=== PATIENT | female | born 1955 ===

== ENCOUNTER → 2021-07-19 11:03 | Outpatient (BNVA) | payer MEDICARE, MEDICAID, SELFPAY | PROVIDERS: PCP Internal Medicine; Visit Provider Nurse Practitioner Family | CPT/HCPCS: Q3014 ==

== ENCOUNTER → 2021-08-11 09:18 | Outpatient (BNVA) | payer MEDICARE, SELFPAY | PROVIDERS: PCP Internal Medicine; Visit Provider Nurse Practitioner Family | DX: Z13.89 Encounter for screening for other disorder (principal) ==

== ENCOUNTER → 2021-12-04 10:27 | Outpatient (BNVA) | payer OTHER, SELFPAY | PROVIDERS: PCP Internal Medicine; Visit Provider Nurse Practitioner Family | DX: G20 Parkinson's disease (principal); R56.9 Unspecified convulsions; R44.3 Hallucinations, unspecified; F03.90 Unspecified dementia, unspecified severity, without behavioral disturbance, psychotic disturbance, mood disturbance, and anxiety; Z79.899 Other long term (current) drug therapy | CPT/HCPCS: Q3014 ==

== ENCOUNTER → 2022-10-05 11:04 | Outpatient (BNVA) | payer OTHER, SELFPAY | PROVIDERS: PCP Internal Medicine; Visit Provider Nurse Practitioner Family | DX: G20 Parkinson's disease (principal); R56.9 Unspecified convulsions; R44.3 Hallucinations, unspecified; F03.90 Unspecified dementia, unspecified severity, without behavioral disturbance, psychotic disturbance, mood disturbance, and anxiety | CPT/HCPCS: Q3014 ==

== ENCOUNTER 2023-03-19 15:33 | Outpatient (AMB) | payer OTHER, SELFPAY ==
--- NOTE | 2023-03-19 15:34 | MHC.OFFVIS ---
Intake Intake Visit Reasons: Video call [facility] f/u appt # [phone] Intake Note: Patient video call for follow up. patient states not issues or concerns at the moment Allergies Cephalosporins Allergy (Unknown, Verified 03/19/23 15:34) Unknown Penicillins Allergy (Unknown, Verified 03/19/23 15:34) Unknown Medication List - Last Reconciled 03/19/23 by ANTHONY Rivera acetaminophen ER (Mapap Arthritis Pain) 650 mg PO Q6H PRN amlodipine 10 mg PO DAILY apixaban (Eliquis) 5 mg PO BID atorvastatin 40 mg PO DAILY divalproex 250 mg PO TID 30 days gabapentin 2 caps qam, 1 cap q 2pm, 1 cap qhs PO; 30 days levetiracetam (Keppra) 1,000 mg PO BID 30 days levetiracetam (Keppra) 250 mg PO BID 30 days lisinopril 20 mg PO DAILY lorazepam 0.25 mg (1/2 x 0.5 mg) PO TID 30 days quetiapine 25 - 50 mg (1 - 2 x 25 mg) PO BEDTIME 30 days HPI HPI Comments History of Present Illness Details 67-yr-old female presents for f/u televideo visit, via [email or web address]. Pt's dtr provides history. In Jan, pt developed Covid-19 w/ cough, fever, and breakthrough seizures. She went to the hosp from Jan 26-. Her Keppra dose was increased for several days, but has returned to Keppra 1250mg bid. They never started the Rytary as they were worried about worsening her hallucinations. Pt is eating and drinking ok. But, she is sometimes pocketing her food while eating or coughs while drinking. She takes her meds w/o diff. She has a swallowing eval coming up. She has a general surgery appt for a right lower abd mass- ? lipoma. No skin issues. She has an OTC alt air mattress (dtr bought on [employer]). Pt is no longer walking, dtr is considering purchasing a sitting transfer lift. [facility] Medical History A-fib Arthritis Cerebral infarction FH: cholecystectomy Family History Father HTN (hypertension) Mother HTN (hypertension) Cancer Social History Alcohol intake: never Patient Tobacco Use Status: Never used Tobacco Review of Systems Const All systems reviewed & are unremarkable except as noted in HPI and below Neuro Reports confusion Psych Reports confusion Physical Exam Const Other: Laying in bed, General: cooperative, no acute distress and confusion Nutritional Appearance: well nourished Orientation/consciousness: confusion Neuro General: confusion Assessment & Plan Assessment & Plan (1) Parkinson's disease: Code(s): G20 - Parkinson's disease (2) Seizures: Code(s): R56.9 - Unspecified convulsions (3) Hallucinations: Comment: Nuplazid helped, but stopped d/t A-fib. Code(s): R44.3 - Hallucinations, unspecified (4) Dementia: Code(s): F03.90 - Unspecified dementia, unspecified severity, without behavioral disturbance, psychotic disturbance, mood disturbance, and anxiety Plan For seizures: Continue Depakote 250mg tid. Continue Levetiracetam 1250mg bid. Continue Gabapentin. ? For dementia/Parkinson's: Swallow study as ordered. Hold Rytary 23.75-95mg. Continue Seroquel 25 mg 1.5-2 tabs qhs. Continue Lorazepam. Continue supportive care. ? f/u in 6 months or sooner prn. Medications: Refilled levetiracetam (Keppra) 1,000 mg PO BID 30 days 60 tabs 6RF levetiracetam (Keppra) 250 mg PO BID 30 days 60 tabs 6RF Telehealth Telehealth Location of provider rendering services: practice address Location of patient: address on file Patient Identification confirmed using: Name, : Yes Telehealth method: video Patient verbally consented to treatment: Yes Patient verbally consented to billing insurance company: Yes Patient informed of any privacy concerns related to visit: Yes Minutes spent on Phone/Video with Pt.: 21 Coding Level of Care Code Tele Est Pt Level 4 (69117) Diagnoses Parkinson's disease G20 Seizures R56.9 Hallucinations R44.3 Dementia F03.90
== END 2023-03-20 08:23 | disposition home or self-care (01) ==
LOC: HO.HSMS 15:33
PROVIDERS: PCP Internal Medicine; Visit Provider Nurse Practitioner Family
DX: G20.A1 Parkinson's disease without dyskinesia, without mention of fluctuations (principal); F02.82 Dementia in other diseases classified elsewhere, unspecified severity, with psychotic disturbance; R56.9 Unspecified convulsions
CPT/HCPCS: 99214

== ENCOUNTER → 2023-03-19 15:33 | Outpatient (BNVA) | payer OTHER, SELFPAY | PROVIDERS: PCP Internal Medicine; Visit Provider Nurse Practitioner Family ==

== ENCOUNTER 2023-09-16 11:48 | Outpatient (AMB) | payer OTHER, SELFPAY ==
--- NOTE | 2023-09-16 11:35 | A.OFFVIS_ITS ---
Intake Intake Visit Reasons: 6 mo f/u - Video call [phone] Allergies Cephalosporins Allergy (Unknown, Verified 09/16/23 11:48) Unknown Penicillins Allergy (Unknown, Verified 09/16/23 11:48) Unknown Medication List - Last Reconciled 09/16/23 by ANTHONY Rivera acetaminophen ER (Mapap Arthritis Pain) 650 mg PO Q6H PRN amlodipine 10 mg PO DAILY apixaban (Eliquis) 5 mg PO BID atorvastatin 40 mg PO DAILY divalproex 250 mg PO TID 30 days gabapentin 2 caps qam, 1 cap q 2pm, 1 cap qhs PO; 30 days levetiracetam (Keppra) 1,000 mg PO BID 30 days levetiracetam (Keppra) 250 mg PO BID 30 days lisinopril 20 mg PO DAILY lorazepam 0.25 mg (1/2 x 0.5 mg) PO TID 30 days quetiapine 25 - 50 mg (1 - 2 x 25 mg) PO BEDTIME 30 days HPI HPI Comments History of Present Illness Details 68-yr-old female presents for f/u teleph one visit. Pt's dtr provides history. Dtr denies any seizure activity. Compliant w/ her AEDs. She is dependent for all ADLs. She is rigid. Her dtr is giving her bed baths, as showering her was becoming unsafe. Her home OT- suggested to do the bed baths instead. Pt is eating and drinking ok. Swallowing eval was normal. No constipation or known abdominal pain. Voiding QS. She has a general surgery appt- was rescheduled to 09/25/23- d/t for chronic light lower abd mass- ? lipoma. No skin issues. She has an OTC alt air mattress (dtr had bought on [employer]). Pt is no longer standing or walking, dtr and her fiance do a 2 person transfer. Dtr feels pt's mood is overall content. No usual crying or agitation. Rarely calling out- feels this just happens when her CPAP does not have a good seal. [facility] Medical History (Updated 09/16/23 @ 16:56 by ANTHONY Rivera) Parkinson's disease Arthritis A-fib Cerebral infarction FH: cholecystectomy Family History Father HTN (hypertension) Mother HTN (hypertension) Cancer Social History Alcohol intake: never Patient Tobacco Use Status: Never used Tobacco Assessment & Plan Assessment & Plan (1) Dementia: Code(s): F03.90 - Unspecified dementia, unspecified severity, without behavioral disturbance, psychotic disturbance, mood disturbance, and anxiety (2) Hallucinations: Comment: Nuplazid helped, but stopped d/t A-fib. Code(s): R44.3 - Hallucinations, unspecified (3) Seizures: Code(s): R56.9 - Unspecified convulsions (4) Parkinson's disease without dyskinesia: Code(s): G20.A1 - Parkinson's disease without dyskinesia, without mention of fluctuations Plan For seizures: Continue Depakote 250mg tid. Continue Levetiracetam 1250mg bid. Continue Gabapentin. ? For dementia/Parkinson's: Hold Rytary 23.75-95mg for now. Continue Seroquel 25 mg 1.5-2 tabs qhs. Continue Lorazepam. Continue supportive care. ? f/u in 9 months or sooner prn. Medications: Refilled levetiracetam (Keppra) 1,000 mg PO BID 60 tabs 6RF 30 days levetiracetam (Keppra) 250 mg PO BID 60 tabs 6RF 30 days gabapentin 2 caps qam, 1 cap q 2pm, 1 cap qhs PO; 120 caps 6RF 30 days quetiapine 25 - 50 mg (1 - 2 x 25 mg) PO BEDTIME 60 tabs 6RF 30 days Telehealth Telehealth Location of provider rendering services: practice address Location of patient: address on file Patient Identification confirmed using: Name, : Yes Telehealth method: voice only Patient verbally consented to treatment: Yes Patient verbally consented to billing insurance company: Yes Patient informed of any privacy concerns related to visit: Yes Minutes spent on Phone/Video with Pt.: 12 Coding Level of Care Code Tele Est Pt Level 4 (73522) Diagnoses Dementia F03.90 Hallucinations R44.3 Seizures R56.9 Parkinson's disease without dyskinesia G20.A1
== END 2023-09-23 13:19 | disposition home or self-care (01) ==
LOC: HO.HSMS 11:48
PROVIDERS: PCP Internal Medicine; Visit Provider Nurse Practitioner Family
DX: G20.A1 Parkinson's disease without dyskinesia, without mention of fluctuations (principal); F02.80 Dementia in other diseases classified elsewhere, unspecified severity, without behavioral disturbance, psychotic disturbance, mood disturbance, and anxiety; R44.3 Hallucinations, unspecified; R56.9 Unspecified convulsions
CPT/HCPCS: 99442

== ENCOUNTER → 2023-09-16 11:48 | Outpatient (BNVA) | payer OTHER, SELFPAY | PROVIDERS: PCP Internal Medicine; Visit Provider Nurse Practitioner Family ==

== ENCOUNTER 2024-06-18 11:28 | Outpatient (AMB) | payer OTHER, SELFPAY ==
--- NOTE | 2024-06-18 11:29 | MHC.OFFVIS ---
Vital Signs 06/18/24 11:30 Height 4 ft 9 in Intake Visit Reasons: 9 mo f/u [phone] Outside Machinist Helper Required: No Accompanied by: Daughter Allergies Cephalosporins Allergy (Unknown, Verified 06/18/24 11:29) Unknown Penicillins Allergy (Unknown, Verified 06/18/24 11:29) Unknown HPI Comments Details: 69-yr-old female presents for f/u telephone visit. Pt is present and pt's dtr provides history. They are unable to utilize [employer] technology today. Pt was tx'd for a URI about 1-2 wks ago, but is feeling better now. She did have general surgery consult- for chronic light lower abd lipoma, but excision was not advised as it is not bother Dtr denies any seizure activity. Compliant w/ her AEDs. Dtr is pt's primary caregiver- her older dtr does help her when needed. She is dependent for all ADLs. She is still rigid. Transfers via pippa lift- dtr tries to get her OOB a few times a week. Her dtr is giving her bed baths, as showering her was becoming unsafe. Pt is eating and drinking ok. Previous swallowing eval was normal. No constipation or known abdominal pain. Voiding QS. Pt had started to develop a buttock sore, however dtr realized that her air mattress was slightly deflated as her sheet was crimping the air mattress tubing. Dtr was able to increase her skin care and positioning, and the sore resolved. She has an OTC alt air mattress (dtr had bought on [employer]). Pt is no longer standing or walking, dtr and her fiance do a 2 person transfer. Dtr feels pt's mood is overall content. No usual crying or agitation. Rarely calls out her mother/aunt/son's name or where they are. Or may call out to her dtr or making a sound to get her dtr's attention- often if pt needs to be changed. Occasionally may have moments when her speech is clearer- she may ask how long she has been like this. She is using the CPAP nightly. Sometimes the nasal pillows have some condensation on it. Patient's daughter wonders when her CPAP machine should be replaced, as she has had for many years. She is f/b [employer]. [facility] Medical History Parkinson's disease Arthritis A-fib Cerebral infarction FH: cholecystectomy Family History Father HTN (hypertension) Mother HTN (hypertension) Cancer Social History Alcohol intake: never Patient Tobacco Use Status: Never used Tobacco Telehealth Telehealth Telehealth Platform: [employer] Location of provider rendering services: practice address Location of patient: address on file Patient Identification confirmed using: Name, : Yes Telehealth method: voice only Patient verbally consented to treatment: Yes Patient verbally consented to billing insurance company: Yes Patient informed of any privacy concerns related to visit: Yes Minutes spent on Phone/Video with Pt.: 24 Assessment & Plan Assessment & Plan (1) Dementia: Code(s): F03.90 - Unspecified dementia, unspecified severity, without behavioral disturbance, psychotic disturbance, mood disturbance, and anxiety Category: Medical (2) Hallucinations: Comment: Nuplazid helped, but stopped d/t A-fib. Code(s): R44.3 - Hallucinations, unspecified Category: Medical (3) Seizures: Code(s): R56.9 - Unspecified convulsions Category: Medical (4) Parkinson's disease without dyskinesia: Code(s): G20.A1 - Parkinson's disease without dyskinesia, without mention of fluctuations Category: Medical (5) Obstructive sleep apnea: Code(s): G47.33 - Obstructive sleep apnea (adult) (pediatric) Category: Medical Plan For seizures: Continue Depakote 250mg tid. Continue Levetiracetam 1250mg bid. Continue Gabapentin. ? For dementia/Parkinson's: Continue to hold Rytary 23.75-95mg for now. Continue Seroquel 25 mg 1.5-2 tabs qhs. Continue Lorazepam. Continue skin care, frequent repositioning, and alternating air mattress. Continue supportive care. For BRAVO: Advised to adjust Pap machine humidification level, in hopes this lessens nasal pillow condensation. Will request pt's CPAP PAP compliance data and previous sleep study reports from [facility]. ? f/u in 9 months or sooner prn. Coding Level of Care Code Tele Est Pt Level 4 (79749) Diagnoses Dementia F03.90 Hallucinations R44.3 Seizures R56.9 Parkinson's disease without dyskinesia G20.A1 Obstructive sleep apnea G47.33
== END 2024-06-18 13:33 | disposition home or self-care (01) ==
PROVIDERS: PCP Internal Medicine; Visit Provider Nurse Practitioner Family
DX: F03.90 Unspecified dementia, unspecified severity, without behavioral disturbance, psychotic disturbance, mood disturbance, and anxiety (principal); R44.3 Hallucinations, unspecified; R56.9 Unspecified convulsions; G20.A1 Parkinson's disease without dyskinesia, without mention of fluctuations; G47.33 Obstructive sleep apnea (adult) (pediatric)
CPT/HCPCS: 98016

== ENCOUNTER 2025-03-02 11:53 | Outpatient (AMB) | payer OTHER, SELFPAY ==
--- NOTE | 2025-03-02 11:43 | MHC.OFFVIS ---
Intake Visit Reasons: Follow Up 6mo: [phone] Road Grader Operator Required: No Accompanied by: Daughter Allergies Cephalosporins Allergy (Unknown, Verified 03/02/25 11:43) Unknown Penicillins Allergy (Unknown, Verified 03/02/25 11:43) Unknown Medication List - Last Reconciled 03/02/25 by ANTHONY Rivera acetaminophen ER (Mapap Arthritis Pain) 650 mg PO Q6H PRN amlodipine 10 mg PO DAILY apixaban (Eliquis) 5 mg PO BID atorvastatin 40 mg PO DAILY divalproex 250 mg PO TID 30 days gabapentin 2 caps qam, 1 cap q 2pm, 1 cap qhs PO; 30 days levetiracetam (Keppra) 1,000 mg PO BID 30 days levetiracetam (Keppra) 250 mg PO BID 30 days lisinopril 20 mg PO DAILY lorazepam 0.25 mg (1/2 x 0.5 mg) PO TID 30 days quetiapine 25 - 50 mg (1 - 2 x 25 mg) PO BEDTIME 30 days HPI Comments Details: A 69-year-old female presents for a follow-up telephone visit for dementia. Pt is present, and her dtr provides history. They are unable to utilize [employer] technology today. Denies any significant changes in medical history. Dtr denies any seizure activity. Typically compliant with/ her AEDs. However, in the last week or so, patient is not swallowing some of her larger pills- such as the Keppra and Depakote. Sometimes she states that she does not take drugs. Previous swallowing eval was normal. Dtr is pt's primary caregiver- her older dtr does help her when needed. She is dependent on all ADLs. She is still rigid. Daughter is trying to get the patient OOB via a [employer] lift about twice a week now- a bit less than before. Her dtr is giving her bed baths. Pt is eating and drinking ok. No constipation or known abdominal pain. Voiding ok. No interval UTIs. Denies anyskin ulcers. Dtr was able to increase her skin care and positioning, and the sore resolved. She has an OTC air mattress (dtr had bought on [employer]). Dtr feels pt's mood is overall content. No usual crying or agitation unless she is unintentionally late in giving her mid-day medications.. She smiles when the grandchildren are around. Occasionally, she may have moments when her speech is clearer. She is using the CPAP nightly. They adjusted the humidification settings, which helped with the excess condensation on the CPAP mask. We do not have a recent CPAP compliance report. The daughter was previously asked to mail the CPAP SD card to [facility]. However, today she states that the CPAP machine does not have an SD card. Patient's respiratory company is [employer]. [facility] Medical History Parkinson's disease Arthritis A-fib Cerebral infarction FH: cholecystectomy Family History Father HTN (hypertension) Mother HTN (hypertension) Cancer Social History Alcohol intake: never Patient Tobacco Use Status: Never used Tobacco Telehealth Telehealth Telehealth Platform: Telephone Location of provider rendering services: practice address Location of patient: address on file Patient Identification confirmed using: Name, : Yes Telehealth method: voice only Patient verbally consented to treatment: Yes Patient verbally consented to billing insurance company: Yes Patient informed of any privacy concerns related to visit: Yes Minutes spent on Phone/Video with Pt.: 18 Assessment & Plan Assessment & Plan (1) Dementia: Code(s): F03.90 - Unspecified dementia, unspecified severity, without behavioral disturbance, psychotic disturbance, mood disturbance, and anxiety Category: Medical Qualifiers: Dementia type: unspecified type Dementia severity: severe Dementia behavioral or psychological symptom: with agitation Qualified Code(s): F03.C11 - Unspecified dementia, severe, with agitation (2) Hallucinations: Comment: Nuplazid helped, but stopped d/t A-fib. Code(s): R44.3 - Hallucinations, unspecified Category: Medical (3) Seizures: Code(s): R56.9 - Unspecified convulsions Category: Medical (4) Parkinson's disease without dyskinesia: Code(s): G20.A1 - Parkinson's disease without dyskinesia, without mention of fluctuations Category: Medical Qualifiers: Fluctuating manifestations: without fluctuating manifestations Qualified Code(s): G20.A1 - Parkinson's disease without dyskinesia, without mention of fluctuations (5) Obstructive sleep apnea: Code(s): G47.33 - Obstructive sleep apnea (adult) (pediatric) Category: Medical Plan For seizures: Will adjust the patient's AED formulations, as the patient is having difficulty swallowing larger pills Discontinue Depakote 250mg tab tid. Discontinue Levetiracetam tab 1250mg bid order. Start Depakote Sprinkles 125 mg cap, 2 caps (250 mg) TID- may open up capsule and sprinkle into vehicle of choice Start levetiracetam 100 milligrams/mL oral solution: 1250 mg (12.5 mL) twice daily (b.i.d.). Continue Gabapentin 100 mg capsule: 2 caps q.a.m., 1 cap q.p.m., and 1 cap q.h.s... For dementia/Parkinson's: Continue to hold Rytary 23.75-95mg for now. Continue Seroquel 25 mg tab: 1.5-2 tabs qhs. Continue Lorazepam 0.5 mg tab: Half a tablet (0.25 mg) TID Continue skin care, frequent repositioning, and alternating air mattress. Continue supportive care. For BRAVO: Continue PAP therapy nightly, as the patient experiences a good clinical effect from use. May continue to adjust the Pap machine humidification level as needed. We will request that [facility] send the patient's daughter a CPAP SD card so that we can assess current settings and therapy data. Will request the patient's CPAP compliance data and previous sleep study reports from [facility]. f/u in 9 months or sooner prn. Medications: New levetiracetam (Keppra) 1,250 mg (12.5 mL) PO BID 825 mL 6RF 30 days divalproex (Depakote Sprinkles) 250 mg (2 x 125 mg) PO TID 180 caps 6RF 30 days Discontinued levetiracetam (Keppra) Discontinued Reason: Doctor's Order 1,000 mg PO BID 30 days 60 tabs 6RF levetiracetam (Keppra) Discontinued Reason: Doctor's Order 250 mg PO BID 30 days 60 tabs 6RF divalproex Discontinued Reason: Doctor's Order 250 mg PO TID 30 days 90 tabs 6RF Coding Level of Care Code Tele Est Pt Level 4 (59152) Diagnoses Severe dementia with agitation, unspecified dementia type F03.C11 Dementia type: unspecified type Dementia severity: severe Dementia behavioral or psychological symptom: with agitation Hallucinations R44.3 Seizures R56.9 Parkinson's disease without dyskinesia or fluctuating manifestations G20.A1 Fluctuating manifestations: without fluctuating manifestations Obstructive sleep apnea G47.33
--- OUTSIDE RECORDS SUMMARY | 2025-03-02 16:07 | XMS_ITS | Encounter Summary ---
Author Organization [facility] Address [address] [place] [address] Care Team Providers Care Instructional Technology Instructor Name Role Phone Santhosh Plunkett MD Primary Care Provider [phone] Reason for Visit * Reason Onset Date Comments Fitting for DME 02/01/2025 Encounter Details Date Type Department Care Team ([facility] st Contact Info) Description 02/01/2025 Telephone Internal Medicine - [facility] [address] [place] [phone] Santhosh Plunkett MD [address] [place] [id number] Social History Tobacco Use Types Packs/Day Years Used Date Smoking Tobacco: Never Smokeless Tobacco: Never Alcohol Use Standard Drinks/Week Comments Yes 0 (1 standard drink = 0.6 oz pur e alcohol) Housing Instability Answer Date Recorde d Are you worried that in the next 2 months you may not have stable housing? Unable to respond 05/21/2024 Food Access & Nutrition Answer Date Rec orded Do you have access to a vari ety of food including fruits and vegetables? Unable to respond 05/21/2024 Health Literacy Answer Date Recorded How often do you need to hav e someone help you when you read instructions, pamphlets, or other written material from your doctor or pharmacy? Unable to respond 05/21/2024 Caregiver: How often do you need to have someone help you when you read instructions, pamphlets, or other written material from your doctor or pharmacy? Not on file 024 Financial Risk Answer Date Recorded How hard is it for you to pa y for the very basics like food, housing, medical care, and air conditioning / heating? Unable to respond 05/21/2024 Transportation Answer Date Recorded Has the lack of transportati on kept you from meetings, work, or from getting things needed for daily living? Unable to respond 05/21/2024 Has the lack of transportati on kept you from medical appointments or from getting medications? Unable to respond 05/21/2024 Social Isolation Answer Date Recorded How often do you feel lonely or isolated from those around you? Unable to respond 05/21/2024 Food Risk Answer Date Recorded Within the past 12 months we worried whether our food would run out before we got money to buy more. Unable to respond 024 Within the past 12 months th e food we bought just didn't last and we didn't have money to get more. Unable to respond 10/2023 Dependent Care Answer Date Recorded Do you need help finding or paying for care for your loved ones. For example, child adolescent psychiatrist or elderly care for an older adult? Unable to respond 05/21/2024 Education Answer Date Recorded Do you think completing more education or training, like finishing a GED, going to college, or learning a trade, would be helpful for you? Unable to respond 05/21/2024 Employment and Income Answer Date Recor ded During the last four weeks, have you been actively looking for work? Unable to respond 05/21/2024 Living Situation Answer Date Recorded What is your living situation? 1 07/22/2023 Comments Unknown Sex and Gender Information Value Date Recorded Sex Assigned at Not on file Legal Sex Female 6:16 PM EST Gender Identity Not on file Sexual Orientation Not on file documented as of this encounter Progress Notes * Jorge Luis Hurst MA - 02/09/2025 10:26 AM EDT IVET 08.19.[address] Plunkett I do not see where Dr Plunkett ordered a wheelchair . Per Home Health Cert from 11.22.24 - 01.20.25 patient is bed bound A message was left to have patient return call to Adult Medicine DME/ PT1 dept #[id number] * eRne Rodriguez - 02/08/2025 12:11 PM EDT Deanna did not state any information about wheelchair, only stated a script was sent but not surewhere, asking for a call back * Jorge Luis Hurst MA - 02/03/2025 11:41 AM EDT No request for a wheelchair / Does patient in need of a new one ? What kind ? Where would they likethe Rx and notes faxed? * Rene Rodriguez - 02/01/2025 1:22 PM EDT Asking for a call back to know where script for wheel chair was sent documented in this encounter Plan of Treatment Not on file documented as of this encounter Visit Diagnoses Not on filedocumented in this encounter Additional Health Concerns Assessment Noted Time PHQ-9 Depression Total Score: 0 08/04/19 25 10:28 PM EST documented as of this encounter Care Teams Instructional Technology Instructor Relationship Specialty Start Date End Date Santhosh Plunkett MD [address] [place] [id number] PCP - General Internal Medicine 05/19/24 documented as of this encounter
--- OUTSIDE RECORDS SUMMARY | 2025-03-02 16:07 | XMS_ITS | Clinical Summary ---
Author Organization [facility] [address] [facility] Building Address [address] [facility] [place] [address] Phone Care Team Providers Care Wastewater Analyst Lab Analyst Name Role Phone Santhosh Plunkett MD Primary Care Provider [phone] Allergies Active Allergy Reactions Criticality Noted Date Comments Penicillins Itching 08/27/2008 Medications diclofenac (VOLTAREN) 1 % topical gel APPLY TO THE AFFECTED AREA TOPICALLY two (2) times a day 022 Active divalproex (DEPAKOTE) [address] tablet Take 1 Tab by mouth 3 times daily. 020 Active gabapentin (NEURONTIN) 100 mg capsule TAKE 2 CAPSULES BY MOUTH IN THE MORNING, 1 CAPSULE AT 2PM AND 1 CAPSULE AT 8pm 019 Active ketoconazole (NIZORAL) 2 % shampoo Use as a face wash daily 024 Active levETIRAcetam (KEPPRA) 1,000 mg tablet Take 1 Tablet by mouth 2 times daily. 1250 mg BID with 250 mg tab 024 Active LORazepam (ATIVAN) 0.5 mg tablet TAKE 1/2 TABLET BY MOUTH 3 (THREE) TIMES A DAY NEEDED FOR ANXIETY 021 Active QUEtiapine (SEROquel) 25 mg tablet Take 2 Tablets by mouth at bedtime. 024 Active tobramycin (TOBREX) 0.3 % ophthalmic solution apply 2 Drops to the eye 3 times daily. 024 Active incontinence pad, liner, disp pad INCONTINENCE SUPPLY DISPOSABLE (DISPOSABLE LINERS) MISC Indefinite Use for Incontinence [ R32] Parkinson's disease [G20] CVA [I63.9] LifeTime use Dx: 024 Active INCONTINENCE PAD, LINER, DISP MISC INCONTINENCE SUPPLY DISPOSABLE (DISPOS UNDERPADS/60G/23 X36 ) MISC 1 Each by route daily as needed (for incontinence). 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 90 tablet 1 025 Active triamcinolone (KENALOG) 0.1 % cream Apply to affected area 1-2 times daily as needed. Avoid face and groin. 80 g 1 025 Active amLODIPine (NORVASC) 10 mg tabletIndicatio ns:Essential (primary) hypertension TAKE 1 TABLET BY MOUTH ONCE DAILY 90 tablet 1 025 Active acetaminophen (TYLENOL 8 HOUR) 650 mg 8 hr tabletIndicatio ns:Urinary tract infection, site not specified TAKE 1 TABLET BY MOUTH EVERY 8 HOURS NEEDED FOR PAIN 90 tablet 1 025 Active lisinopriL (PRINIVIL,ZESTR IL) 20 mg tabletIndicatio ns:Essential (primary) hypertension Take 1 tablet (20 mg total) by mouth 1 (one) time each day. 90 tablet 1 025 Active amLODIPine (NORVASC) 10 mg tabletIndicatio ns:Essential (primary) hypertension TAKE 1 TABLET BY MOUTH ONCE DAILY 90 tablet 1 025 2024 Discontinued acetaminophen (TYLENOL 8 HOUR) 650 mg 8 hr tabletIndicatio ns:Urinary tract infection, site not specified TAKE 1 TABLET BY MOUTH EVERY 8 HOURS NEEDED FOR PAIN 90 tablet 1 025 2024 Discontinued lisinopriL (PRINIVIL,ZESTR IL) 20 mg tabletIndicatio ns:Essential (primary) hypertension TAKE 1 TABLET BY MOUTH ONCE DAILY 90 tablet 1 025 2024 Discontinued(R eorder) Active Problems Problem Noted Date Diagnosed Date Dry scalp 09/24/2023 Primary osteoarthritis of both hands 07/13/2021 Recurrent UTI 04/15/2020 Subarachnoid hemorrhage ([facility] V24, [facility] V2 8) 07/25/2018 Hyperlipidemia 02/24/2016 Hallucination 08/20/2014 Delusions ([facility] V24, [facility] V28) 06/15/2014 Obstructive sleep apnea 01/15/2014 Seizure disorder ([facility] V24, [facility] V28) 10/15 Cerebral artery occlusion wi th cerebral infarction ([facility] V24, [facility] V28) 10/08/2011 Overview (04/13/2024): Right-sided weakness, September 2011 IMO update Atrial fibrillation with slo w ventricular response ([facility] V24, [facility] V28) 09/24/2011 Overview (04/13/2024): L BBB on ekg. Nuchlear stress test normal. Cerebral infarction ([facility] V24, [facility] V28) 0 09/24/2011 Overview (04/13/2024): [facility] [place] update Parkinson disease ([facility] V24, [facility] V28) Overview (04/13/2024): 2000 Primary hypertension 08/27/2008 Encounters Date Type Department Care Team Description 02/01/2025 [facility]phone [facility] [address] [place], [place] [address] [address] Santhosh Plunkett MD 01/25/2025 Telephone Internal Medicine - [address] [place] [address] Santhosh Plunkett MD 01/20/2025 Telephone [facility] [place] [phone] Santhosh Plunkett MD 11/30/2024 Billing Patient Not Present [facility] [address] [place], [place] [address] [phone] Santhosh Plunkett MD Lewy body dementia, unspecified dementia severity, unspecified whether behavioral, psychotic, or mood disturbance or anxiety ([facility] V24, [facility] V28) (Primary Dx); Atrial fibrillation, unspecified type (CMS/HCC V24, [facility] V28); Other epilepsy without status epilepticus, not intractable (CMS/HCC V24, CMS/HCC V28); Essential (primary) hypertension; Parkinson's disease without dyskinesia, unspecified whether manifestations fluctuate (CMS/HCC V24, CMS/HCC V28); Chronic heart failure, unspecified heart failure type (CMS/HCC V24, CMS/HCC V28); Other specified soft tissue disorders; Hyperlipidemia, unspecified hyperlipidemia type; Spastic hemiplegia as late effect of cerebrovascular disease, unspecified cerebrovascular disease type, unspecified laterality (CMS/HCC V24, CMS/HCC V28); Aphasia following cerebral infarction; Difficulty in walking, not elsewhere classified; Dependence on other enabling machines and devices; Encounter for current long-term use of anticoagulants from Last 3 Months Immunizations Name Administration Dates Next Due H1N1 Inj Preservative Free 05/05/2009 Influenza Quadravalent, MDCK , 0.5ml, preservative free (Flucelvax) 6mo and older 05/15/2018 Influenza trivalent, 0.5mL, preservative free (Fluarix; FluLaval; Fluzone) ages 6mo and older (Afluria) 3 years and older 03/30/2013,04/01/2012 Pneumococcal polysaccharide 23 valent (Pneumovax 23) 2yo and older 03/30/2013 Td Tetanus diptheria (Tdvax) 7yo and older 12/21 Surgical History Surgery Date Site/Laterality Comments CHOLECYSTECTOMY 1982 PROCEDURE: MD CHOLECYSTECTOMY Medical History Medical History Date Comments Obstructive sleep apnea (kendrick lt) (pediatric) DX:Obstructive sleep apnea ( adult) (pediatric); COMMENT: AHI 33 Atrial fibrillation ([facility]/HCC V24, CMS/HCC V28) DX:Atrial fibrillation (HCC) CVA (cerebral infarction) 2011 DX:CVA (cerebral infarction) Parkinson disease (CMS/HCC V 24, [facility] V28) DX:Parkinson disease (HCC) Seizures (CMS/HCC V24, CMS/HCC V28) DX:Seizures (HCC) Family History Relation Name Status Comments Brother 1 Alive Brother 2 Alive Brother 3 Alive Brother 4 Alive Father Mother Alive Sister 1 Alive Sister 2 Alive Sister 3 Alive Sister 4 Alive Sister 5 Alive Sister 6 Alive Sister 7 Alive Social History Tobacco Use Types Packs/Day Years [...] care for your loved ones. For example, childrens club attendant or elderly care for an older adult? [...] on file Sexual Orientation Not on file Obstetrics History Last Filed Vital Signs Vital Sign Reading Time Taken Comments Blood Pressure 129/77 10/18/2023 11:18 AM EDT Pulse 67 10/18/2023 11:18 AM EDT Temperature - - Respiratory Rate - - Oxygen Saturation - - Inhaled Oxygen Concentration - - Weight 76.7 kg (169 lb) 10/18/2023 11:18 AM EDT Height 147.3 cm (4' 10 ) 10/18/2023 11:18 AM EDT Body Mass Index 35.32 10/18/2023 11:18 AM EDT Plan of Treatment Health Maintenance Due Date Last Done Comments Breast Cancer Screening 1955 Zoster Vaccines (1 of 2) 2003 RSV Immunization Adult Patients (1 - Risk 60-74 years 1-dose series) 2013 Pneumococcal Vaccine: 50+ Years (2 of 2 - PCV) 03/30/2014 03/30/2013, 10/21/2012 Colorectal Cancer Screening: Colonoscopy 05/19/2022 Hepatitis C Screening 05/19/2022 Medicare Annual Wellness Visit 05/19/2022 Osteoporosis Screening (Bone Density Screening) 05/19/2022 DTaP,Tdap,and Td Vaccines (2 - Td or Tdap) 12/22/2023 12/21/2013 COVID-19 Vaccine (4 - season) 2025 06/29/2021, 01/10/2021, 12/13/2020 Influenza Vaccine (#1) 2025 , 05/15/2018, 03/30/2013, Additional history exists Hypertension/CHF/CAD Annual BMP Blood Test 03/13/2025 03/13/2024, 03/13/2024 Social Influencers of Health Screening 05/21/2025 05/21/2024 Falls Risk Assessment 08/05/2025 08/05/2024 Cholesterol Screening (Lipid Panel) 10/10/2025 10/10/2020 Depression Screening Completed 08/04/2024 HIB Vaccines Aged Out No longer eligi ble based on patient's age to complete this topic HPV Vaccines Aged Out No longer eligi ble based on patient's age to complete this topic Hepatitis A Vaccines Aged Out No long er eligible based on patient's age to complete this topic Hepatitis B Vaccines Aged Out No long er eligible based on patient's age to complete this topic IPV Vaccines Aged Out No longer eligi ble based on patient's age to complete this topic MMR Vaccines Aged Out No longer eligi ble based on patient's age to complete this topic Meningococcal ACWY Vaccine Aged Out N o longer eligible based on patient's age to complete this topic Meningococcal B Vaccine Aged Out No l onger eligible based on patient's age to complete this topic RSV Immunization Patients Under 20 months Aged Out No longer eligible based on patient's age to complete this topic Varicella Vaccines Aged Out No longer eligible based on patient's age to complete this topic Procedures Procedure Name Priority Date/Time Associated Diagnosis Comments ANNUAL BMP BLOOD TEST Routine 03/13/2024 LIPID PANEL Routine 10/10/2020 from Last 3 Months or Most Recently Relevant to Health Maintenance Results * Annual BMP Blood Test (03/13/2024) Annual BMP Blood Test Abstracted Historical Provider HEALTH MAINTENANCE Final Result * Lipid panel (10/10/2020) LDL/HDL Ratio 2 0 - 4 Triglycerides 123 0 - 150 mg/dL Cholesterol 177 0 - 200 mg/dL HDL 75 >=40 mg/dL LDL Cholesterol 78 0 - 100 mg/dL Blood Venous blood specimen / Unknown Historical Provider LAB BLOOD ORDERABLES Elsa l Result from Last 3 Months or Most Recently Relevant to Health Maintenance [place] [address] [place] [address] MEDICARE Member Subscriber Plan / Payer (Ef fective 2020-Present) Name:Marylou Sanderson Relation to Subscriber:Self Name:Marylou Sanderson Payer ID:[id number] Group ID:[id number] Type:Not on file Address: [place] [address] [place] [address] Care Teams Wastewater Analyst Lab Analyst Relationship Specialty Start Date End Date Santhosh Plunkett MD [address] [place] [id number] PCP - General Internal Medicine 05/19/24
== END 2025-03-02 12:14 | disposition home or self-care (01) ==
LOC: HO.HSMS 11:53
PROVIDERS: PCP Internal Medicine; Visit Provider Nurse Practitioner Family
DX: F03.C11 Unspecified dementia, severe, with agitation (principal); R44.3 Hallucinations, unspecified; R56.9 Unspecified convulsions; G20.A1 Parkinson's disease without dyskinesia, without mention of fluctuations; G47.33 Obstructive sleep apnea (adult) (pediatric)
CPT/HCPCS: 99214